=== PATIENT | female | born 1940 | race Caucasian/White ===

== ENCOUNTER → 2018-01-08 | Outpatient (CLI) | payer MEDICARE ==
[2018-01-08 13:22] LABS: Creatinine, Urine Random 60.6 mg/dL (27.00-270.00)
[2018-01-08 13:23] LABS: White Blood Cells, Urine 0-2 /hpf (0-5)
[2018-01-08 13:24] LABS: Bacteria Not Seen /hpf; Red Blood Cells, Urine Not Seen /hpf (0-2); Squamous Epithelial Cells Few /hpf (Few)
== END | disposition home or self-care (01) ==
LOC: LAB 10:00 → LAB SHORT 10:00
PROVIDERS: Internal Medicine
DX: R94.4 Abnormal results of kidney function studies (principal)
CPT/HCPCS: 81015; 82570; 84156

== ENCOUNTER 2018-10-28 04:11 | Observation (INO) | payer MEDICARE ==
[~2018-10-28] VITALS: Ht 162.6 cm; Wt 70.3 kg
[2018-10-28] MEDS ORDERED: Prinivil10 MG PO (04:37)
[2018-10-28] MEDS ORDERED: CARV6.25 PO (04:37)
[2018-10-28] MEDS ORDERED: Crestor40 MG PO (04:38)
[2018-10-28] MEDS ORDERED: [UNRECOGNIZED DRUG - OTHER] (04:40)
[2018-10-28 05:01] LABS: BASOPHILS ABSOLUTE AUTO 0.03 K/mm3 (0.00-0.23); BASOPHILS PERCENT AUTO 0 % (0-2); EOSINOPHILS ABSOLUTE AUTO 0.01 K/mm3 (0.00-0.68); EOSINOPHILS PERCENT AUTO 0 % (0-6); Hematocrit 37.7 % (33.0-51.0); Hemoglobin 12.5 g/dL (11.5-16.0); IMMATURE GRAN ABSOLUTE AUTO 0.03 K/mm3 (0.00-0.10); IMMATURE GRAN PERCENT AUTO 0 % (0-1); LYMPHOCYTES ABSOLUTE AUTO 0.88 K/mm3 (0.84-5.20); LYMPHOCYTES PERCENT AUTO 12 % (21-46); MONOCYTES ABSOLUTE AUTO 0.33 K/mm3 (0.16-1.47); MONOCYTES PERCENT AUTO 4 % (4-13); Mean Corpuscular HGB 30.8 pg (26.0-34.0); Mean Corpuscular HGB Conc 33.2 g/dL (31.5-36.5); Mean Corpuscular Volume 93 fL (80-100); Mean Platelet Volume 9.6 fL (9.1-12.4); NEUTROPHILS ABSOLUTE AUTO 6.31 K/mm3 (1.96-9.15); NEUTROPHILS PERCENT AUTO 83 % (41-73); Platelet Count 255 K/mm3 (150-400); RDW Coefficient Variation 12.3 % (11.7-14.2); RDW Standard Deviation 41.9 fL (35.1-46.3); Red Blood Cell Count 4.06 M/mm3 (3.80-5.20); White Blood Cell Count 7.59 K/mm3 (4.00-11.30)
[2018-10-28 05:25] LABS: Alanine Aminotransfer (ALT/SGP 25 U/L (12-78); Albumin, Blood 3.9 g/dL (3.4-5.0); Albumin/Globulin Ratio 1.1 (0.8-1.8); Alk Phos 61 U/L (50-136); Anion Gap 8 mmol/L (6-16); Aspartate Aminotrans (AST/SGOT 18 U/L (12-37); Bilirubin, Total 0.6 mg/dL (0.1-1.0); Blood Urea Nitrogen 24 mg/dL (8-24); Bun/Creatinine Ratio 24.3 (12.0-20.0); CO2, Blood 24 mmol/L (21-32); Calcium, Blood 9.1 mg/dL (8.5-10.1); Chloride, Blood 106 mmol/L (98-108); Creatinine, Blood 0.99 mg/dL (0.40-1.00); Globulin, Blood 3.6 g/dL (2.2-4.0); Glomerular Filtration Rate 58 (60-); Glucose, Blood 142 mg/dL (70-99); Potassium, Blood 4.4 mmol/L (3.5-5.5); Sodium, Blood 138 mmol/L (136-145); Total Protein, Blood 7.5 g/dL (6.4-8.2); Troponin I <0.015 ng/mL (0.000-0.040)
--- NOTE | 2018-10-28 07:36 | NUR ---
PT ARRIVED TO ROOM IN NO ACUTE DISTRESS; ORIENTED TO ROOM, HOURLY ROUNDING. BED LOW AND IN LOCKED POSITION. DENIES ANY CHESTPAIN OR ANY OTHER DISTRESS AT THIS TIME.
--- NOTE | 2018-10-28 07:53 | NUR ---
ARRIVED TO FLOOR FROM ED WITH RAC 18G IV SL WNL.
--- NOTE | 2018-10-28 08:27 | NUR ---
CALLED DR. UNGER REPORTED ELEVATED LIPASE AND HYPERTENSION. DR. UNGER STATES "I'LL COME TO SEE THE PATIENT SOON".
[2018-10-28 12:21] LABS: Free Thyroxine 1.12 ng/dL (0.70-1.60)
[2018-10-28 12:23] LABS: Thyroid Stimulating Hormone 0.427 uIU/mL (0.360-4.800)
--- NOTE | 2018-10-28 15:52 | NUR ---
[facility] inital visit: Andie was welcoming of prayer and encouragement. Her spouse was at bedside and this appears to be a strong marriage. She admits she is frustrated and wishes she could go home. MD advising further tests. Andie smiles easily and banters lovingly with . Provided prayer and affirmation of excellent care. I will remain available.
--- NOTE | 2018-10-28 17:50 | NUR ---
REVIEW D'C INSTRUCTIONS W/PATIENT AND S.O. BRIGITTE FROM [place] HAS ALREADY TALKED TO PATIENT ABOUT F/U. NO CHANGES IN MEDS. AWARE TO RETURN TO E.R. IF ANY PROBLEMS OR CONCERNS. [employer]ING [employer]NER AND WILL LET US KNOW WHEN SHE IS READY TO LEAVE.
[2018-10-30 23:06] LABS: METANEPHRINE, PL 16 pg/mL (0-62); NORMETANEPHRINE, PL 136 pg/mL (0-145)
== END 2018-10-28 17:54 | disposition home or self-care (01) ==
LOC: ER 04:11 → MEDS 04:12
PROVIDERS: Emergency Medicine; Internal Medicine Endocrinology, Diabetes & Metabolism; ADMIT Hospitalist
DX: R07.89 Other chest pain (principal); R00.2 Palpitations; R74.8 Abnormal levels of other serum enzymes; I10 Essential (primary) hypertension; E11.9 Type 2 diabetes mellitus without complications; E78.5 Hyperlipidemia, unspecified; Z87.891 Personal history of nicotine dependence; Z88.8 Allergy status to other drugs, medicaments and biological substances; Z88.2 Allergy status to sulfonamides; Z79.899 Other long term (current) drug therapy
CPT/HCPCS: 36415; 71046; 76705; 80053; 82150; 83690; 83835; 84439; 84443; 84484; 85025; 93005; 93010; 93306; 96372; 99285-25; G0378; J1650

== ENCOUNTER 2019-01-08 07:13 | Day surgery (SDC) | payer MEDICARE ==
[~2019-01-08 07:13] MED LIST: CARV6.25 PO; Crestor40 MG PO; Prinivil10 MG PO; [UNRECOGNIZED DRUG - OTHER]
== END 2019-01-08 23:23 | disposition home or self-care (01) ==
LOC: MOI US 07:13 → MOI MAM 07:30 → MOI US 23:23
DX: N60.31 Fibrosclerosis of right breast (principal)
CPT/HCPCS: 19083; 77065; 88305; A4648; G0279

== ENCOUNTER → 2020-01-18 | Outpatient (CLI) | payer MEDICARE | LOC: LAB 13:25 → LAB SHORT 13:25 | DX: Z48.817 Encounter for surgical aftercare following surgery on the skin and subcutaneous tissue (principal); L08.9 Local infection of the skin and subcutaneous tissue, unspecified; R60.0 Localized edema | CPT/HCPCS: 87070; 87205 ==

== ENCOUNTER → 2020-01-20 | Outpatient (CLI) | payer MEDICARE | LOC: LAB 13:10 → LAB SHORT 13:10 | DX: L08.9 Local infection of the skin and subcutaneous tissue, unspecified (principal) | CPT/HCPCS: 87070; 87205 ==

== ENCOUNTER 2020-03-08 08:29 | Day surgery (SDC) | payer MEDICARE | END 2020-03-08 22:42 | disposition home or self-care (01) | LOC: MOI MAM 08:29 | DX: C50.911 Malignant neoplasm of unspecified site of right female breast (principal); Z17.0 Estrogen receptor positive status [ER+]; Z79.899 Other long term (current) drug therapy; Z88.2 Allergy status to sulfonamides; Z88.8 Allergy status to other drugs, medicaments and biological substances; Z51.5 Encounter for palliative care | CPT/HCPCS: 19081; 88305; 88360 ==

== ENCOUNTER 2020-04-05 09:21 | Day surgery (SDC) | payer MEDICARE ==
[2020-04-06] MEDS ORDERED: LATA.005SO BOTHEYES (08:36)
[2020-04-06] MEDS ORDERED: NEBI10 PO (08:36)
[2020-04-06] MEDS ORDERED: ZESTRIL40 M1 PO (08:36)
[2020-04-06] MEDS ORDERED: VITAMIN D3 PO (08:37)
[2020-04-06] MEDS ORDERED: Crestor20 MG PO (08:37)
[2020-04-06] MEDS ORDERED: MAGNESIUM PO (08:38)
[2020-04-06] MEDS ORDERED: Biotin800 MCG PO (08:38)
[2020-04-06] MEDS ORDERED: CALCIUM PO (08:38)
[2020-04-06] MEDS ORDERED: OCUVITE BLUE L1 EACH PO (08:39)
[2020-04-06] MEDS ORDERED: Vitamin B Comple1 EA PO (08:40)
== END 2020-04-05 22:46 | disposition home or self-care (01) ==
LOC: MOI US 09:21
DX: C50.111 Malignant neoplasm of central portion of right female breast (principal); Z79.899 Other long term (current) drug therapy; Z88.2 Allergy status to sulfonamides; Z88.8 Allergy status to other drugs, medicaments and biological substances
CPT/HCPCS: 19281

== ENCOUNTER 2020-04-07 10:36 | Day surgery (SDC) | payer MEDICARE ==
[~2020-04-07] VITALS: Ht 162.6 cm; Wt 71.8 kg
[~2020-04-07 10:36] MED LIST changes: +Biotin800 MCG PO; +CALCIUM PO; +Crestor20 MG PO; +LATA.005SO BOTHEYES; +MAGNESIUM PO; +NEBI10 PO; +OCUVITE BLUE L1 EACH PO; +VITAMIN D3 PO; +Vitamin B Comple1 EA PO; +ZESTRIL40 M1 PO
--- NOTE | 2020-04-07 12:37 | NUR ---
Patient up to Ambulate independently. Gait steady. Patient confirms NPO status and agrees with scheduled surgery. Patient confirms NPO status and agrees with scheduled surgery. Pre-Op teaching done. Pt verbalizes understanding. Patient States Post-Procedure ride home has been arranged.
--- NOTE | 2020-04-07 18:08 | NUR ---
Patient up to Ambulate independently. Gait steady. Discharge instructions reviewed with patient. Patient verbalizes understanding. Copy given to patient to take home. Patient States Post-Procedure ride home has been arranged. Discharged via wheelchair to private car for ride home. OUT VIA WC TO CARE OF SPOUSE, DC INSTRUCTIONS REVIEW WITH SPOUSE INCLUDING ICE PROTOCOL
== END 2020-04-07 23:18 | disposition home or self-care (01) ==
LOC: ORSCMMR 10:36 → NM 10:36 → ORSCMMR 10:37 → NM 11:30 → RAD 13:00 → NM 23:18
PROVIDERS: Surgery
PROC: 07B50ZX Excision of Right Axillary Lymphatic, Open Approach, Diagnostic (ICD-10-PCS; principal; 2020-04-07 13:30)
PROC: 0HBT0ZZ Excision of Right Breast, Open Approach (ICD-10-PCS; principal; 2020-04-07 13:30)
DX: C50.111 Malignant neoplasm of central portion of right female breast (principal); Z17.0 Estrogen receptor positive status [ER+]; D36.0 Benign neoplasm of lymph nodes; N60.21 Fibroadenosis of right breast; I10 Essential (primary) hypertension; E78.5 Hyperlipidemia, unspecified; H40.9 Unspecified glaucoma; Z79.899 Other long term (current) drug therapy
CPT/HCPCS: 38792; 82947; 88305; 88307; 88342; A9270-GY; A9520; J0171; J0690; J1100; J2405; J2550; J2704; J3010; J7120; Q9968

== ENCOUNTER 2024-03-22 10:37 | Emergency (ER) | payer MEDICARE, OTHER ==
[~2024-03-22] VITALS: Ht 162.6 cm; Wt 65.8 kg
[~2024-03-22 10:37] MED LIST changes: +Robaxin750 MG PO
[2024-03-22 11:38] VITALS: BP 199/71
[2024-03-22] MEDS ORDERED: OxyCODONE 5 mg/Acetamin 325 mg TABLET PO ONE (12:05)
[2024-03-22 12:06] LABS: BASOPHILS ABSOLUTE AUTO 0.04 K/mm3 (0.00-0.23); BASOPHILS PERCENT AUTO 0 % (0-2); EOSINOPHILS ABSOLUTE AUTO 0.12 K/mm3 (0.00-0.68); EOSINOPHILS PERCENT AUTO 1 % (0-6); Hematocrit 37.9 % (33.0-51.0); Hemoglobin 12.7 g/dL (11.5-16.0); IMMATURE GRAN ABSOLUTE AUTO 0.02 K/mm3 (0.00-0.10); IMMATURE GRAN PERCENT AUTO 0 % (0-1); LYMPHOCYTES ABSOLUTE AUTO 1.08 K/mm3 (0.84-5.20); LYMPHOCYTES PERCENT AUTO 11 % (21-46); MONOCYTES ABSOLUTE AUTO 0.82 K/mm3 (0.16-1.47); MONOCYTES PERCENT AUTO 8 % (4-13); Mean Corpuscular HGB 31.5 pg (26.0-34.0); Mean Corpuscular HGB Conc 33.5 g/dL (31.5-36.5); Mean Corpuscular Volume 94 fL (80-100); Mean Platelet Volume 8.6 fL (9.1-12.4); NEUTROPHILS ABSOLUTE AUTO 7.74 K/mm3 (1.96-9.15); NEUTROPHILS PERCENT AUTO 79 % (41-73); Platelet Count 417 K/mm3 (150-400); RDW Coefficient Variation 13.9 % (11.7-14.2); RDW Standard Deviation 47.8 fL (35.1-46.3); Red Blood Cell Count 4.03 M/mm3 (3.80-5.20); White Blood Cell Count 9.82 K/mm3 (4.00-11.30)
[2024-03-22 12:39] LABS: Albumin, Blood 3.8 g/dL (3.4-5.0); Bilirubin, Total 0.3 mg/dL (0.1-1.0); Bun/Creatinine Ratio 21.6 (12.0-20.0); Calcium, Blood 9.2 mg/dL (8.5-10.1); Creatinine, Blood 0.88 mg/dL (0.40-1.00); Globulin, Blood 3.9 g/dL (2.2-4.0); Potassium, Blood 4.5 mmol/L (3.5-5.5); Total Protein, Blood 7.7 g/dL (6.4-8.2)
[2024-03-22] MEDS ORDERED: Percocet 5-3251 EACH PO (13:04)
== END 2024-03-22 13:23 | disposition home or self-care (01) ==
LOC: ER 10:37
PROVIDERS: Physician Assistant
DX: M25.552 Pain in left hip (principal); G89.29 Other chronic pain; I10 Essential (primary) hypertension; I25.10 Atherosclerotic heart disease of native coronary artery without angina pectoris; I48.91 Unspecified atrial fibrillation; Z59.89 Other problems related to housing and economic circumstances; Z88.2 Allergy status to sulfonamides; Z88.8 Allergy status to other drugs, medicaments and biological substances; Z91.02 Food additives allergy status; Z79.899 Other long term (current) drug therapy
CPT/HCPCS: 80053; 85025; 99283; A9270